=== PATIENT | female | born 1960 | race Caucasian/White ===

== ENCOUNTER → 2016-11-27 | Outpatient (CLI) | payer BC ==
--- NOTE | 2016-11-27 16:51 | Diagnostic Imaging Report ---
Indications: PAIN Technique: 3 views of the right hand Comparison: None Findings: No acute fractures. No dislocations. Joint spaces are preserved. No radiopaque foreign body. Normal mineralization. Impression: No acute process
--- NOTE | 2016-11-27 16:52 | Diagnostic Imaging Report ---
Indication: PAIN Technique: 3 views left hand Comparison: none Findings: There is mild joint space narrowing involving the third, fourth, and fifth distal interphalangeal joints and the fourth and fifth proximal interphalangeal joints. No acute fractures. No dislocations. The remaining joint spaces are preserved Impression: Acute bony trauma Mild joint space narrowing as described above, consistent with arthropathy, most likely degenerative
== END | disposition home or self-care (01) ==
LOC: EDSEX → RAD 15:40
DX: M19.042 Primary osteoarthritis, left hand (principal); M19.041 Primary osteoarthritis, right hand